=== PATIENT | female | born 2005 | race Caucasian/White ===

== ENCOUNTER 2024-11-12 06:14 | Outpatient (REF) | payer BC, SELFPAY ==
--- NOTE | ~2024-11-12 | US_ITS ---
CLINICAL HISTORY: NO PERIODS X 1 YEAR US pelvis transabdominal and transvaginal with Doppler Comparison: None provided Findings: Transabdominal scanning performed for overall anatomy. Transvaginal scanning performed for additional detail. Anteverted uterus is 4.5 cm length. Normal myometrium. No endometrial lesion, 5 mm thickness. Right ovary 4.2 x 2.3 x 3.4 cm. Left ovary 3.5 x 1.9 x 2 cm. Normal color Doppler with arterial/venous spectral tracing of both ovaries. There are numerous small follicles within the bilateral ovaries. Small amount of simple appearing free fluid within the cul-de-sac. IMPRESSION: 1. Prominent bilateral ovaries containing numerous follicles with an appearance suggesting possible polycystic ovaries. 2. Small amount of simple appearing free fluid within the cul-de-sac. This document has been electronically signed by: Suis Valadez MD on 11/13/2024 12:29:20
--- OUTSIDE RECORDS SUMMARY | 2024-11-12 06:16 | XMS_ITS | Clinical Summary ---
Author Organization [employer] Address [address] [place] [address] Care Team Providers Care Rack Carrier Name Role Phone Angelica Vargas YVONNE Primary Care Provider [phone] Dexter Borrego [phone] Allergies No known active allergies Medications escitalopram (Lexapro) 10 MG tablet TAKE 1.5 TABS (15MG) BY MOUTH DAILY - DOSE INCREASE 4 Active escitalopram (Lexapro) 5 MG tablet PLEASE SEE ATTACHED FOR DETAILED DIRECTIONS 3 Active prazosin (Minipress) 1 MG capsule TAKE 1 CAPSULE BY MOUTH EVERY DAY AT NIGHT 4 Active hydrOXYzine HCl (Atarax) 25 MG tablet TAKE 1/2 TO 1 TABLET UP TO 2X A DAY NEEDED FOR SEVERE ANXIETY 3 Active norgestimate-et hinyl estradiol (Tri-Estarylla) 0.18/0.215/0.25 MG-35 MCG tabletIndicatio ns:Irregular menses Take 1 tablet by mouth in the morning. 84 tablet 3 4 Active Additional Information Patient not taking.Reported on 10/22/2024 Active Problems Problem Noted Date Diagnosed Date Family history of PCOS 10/22/2024 Assessment & Plan (10/22/2024 4:16 PM EDT): PCOS suspected based on constellation of symptoms including irregular menses, hirsutism, mood swings, and difficulty with weight management. Differential diagnosis to be further evaluated by gynecology. - [facility]erral [facility] to [facility] ([facility]) at [facility] for gynecologic evaluation and further workup (as she is currently a student there). Advised to present to [facility] to schedule appointment. - Recommendation to discuss control options and hormonal management with gynecology at [facility]. Complex posttraumatic stress disorder 05/04/2023 Sleep disorder 05/04/2023 Irregular menses 05/04/2023 Depression 05/04/2023 Encounters Date Type Department Care Team Description 10/22/2024 2:00 PM EDT Office Visit [address] [phone] Angelica Vargas FNP Well adult exam (Primary Dx); Screening for depression; Encounter for screening examination for sexually transmitted disease; Irregular menses; Family history of PCOS; At risk for dental caries; Prediabetes 10/22/2024 Orders Only [address] [phone] Angelica Vargas FNP from Last 3 Months Immunizations Immunization Administration Dates Next Due DTaP 05/21/2009, 6,2004,08/24,2004 HepB-CpG 01/26/2024 HiB, unspecified 05/02/2005, 5,2004,07/01 IPV 2004, 5,2004,06/04,2004 Influenza injectable quadriv alent preservative free 11/28/2022 Influenza, IIV3, injectable 01/05/2009, 6 Influenza, seasonal, injecta ble, preservative free 01/05/2009,01/06/2006 MMR 05/21/2009,05/02/2005 Meningococcal B, Omv 08/18/2023 Pneumococcal Conjugate PCV 13 05/02/2005 ,2004,2004,07/01 Tdap 01/26/2024 Varicella 05/21/2009,05/02/2005 Family History Medical History Relation Name Comments No Known Problems Father Polycystic ovary syndrome Mother Diabetes type II Paternal Great-Grandfather Relation Name Status Comments Father Mother Paternal Great-Grandfather Social History Tobacco Use Types Packs/Day Years Used Date Smoking Tobacco: Never Passive Smoke Exposure: Never Smokeless Tobacco: Never Tobacco Cessation:Counseling Given: Not Answered Alcohol Use Standard Drinks/Week Comments Not Currently 0 (1 standard drink = 0.6 oz pur e alcohol) Alcohol Answer Date Recorded How often do you have a drink containing alcohol ? 1 05/04/2023 How many drinks containing a lcohol do you have on a typical day when you are drinking? 0 05/04/2023 How often do you have six or more drinks on one occasion? 0 05/04/2023 Depression Answer Date Recorded Patient Health Questionnaire-9 Score 13 08/08/2023 Patient Health Questionnaire-9 Score 13 08/08/2023 Last PHQ-9: Questionnaire Data Not on file 0 08/08/2023 Housing Stability Answer Date Recorded What is your housing situation today? I have janell farrell 10/22/[address] you li ve. Do you have problems with any of the following? None of the above 10/22/2024 Food Insecurity Answer Date Recorded Within the past 12 months, y ou worried that your food would run out before you got money to buy more: Never True 10/22/2024 Within the past 12 months,th e food you bought just didn't last and you didn't have enough money to get more: Never True Transportation Answer Date Recorded In the past 12 months, has l ack of transportation kept you from medical appts, meetings, work or from getting things needed for daily living? No 10/22/2024 Intimate Partner Violence Answer Date R ecorded Within the last year, have y ou been afraid of your partner or ex-partner? 2 05/04/2023 Within the last year, have y ou been humiliated or emotionally abused in other ways by your partner or ex-partner? 2 Within the last year, have y ou been kicked, hit, slapped, or otherwise physically hurt by your partner or ex-partner? 2 05/04/2023 Within the last year, have y ou been raped or forced to have any kind of sexual activity by your partner or ex-partner? 2 05/04/2023 Utilities Answer Date Recorded In the past 12 months, has t he electric, gas, oil or water company threatened to shut off services in your home? No 10/22/2024 Depression Answer Date Recorded Patient Health Questionnaire-2 Score 0 10/22/2024 Internet Access Answer Date Recorded Internet Access Q1 Yes 10/22/2024 Internet Access Q2 Not on file 10/22/2024 Comments Unknown Intention Date Recorded No desire to become (finding) 0 10/22/2024 Sex and Gender Information Value Date Recorded Sex Assigned at Female 04/25/2023 1:54 PM EST Legal Sex Female 1:51 PM EST Gender Identity Female 04/25/2023 1:54 PM EST Sexual Orientation Lesbian 04/25/2023 1: 54 PM EST Last Filed Vital Signs Vital Sign Reading Time Taken Comments Blood Pressure 108/74 10/22/2024 2:10 PM EDT Pulse 93 10/22/2024 2:10 PM EDT Temperature 36.3 C (97.4 F) 08/08/2023 1:52 PM EDT Respiratory Rate - - Oxygen Saturation 98% 10/22/2024 2:10 PM EDT Inhaled Oxygen Concentration - - Weight 108 kg (237 lb 9.6 oz) 10/22/2024 2:10 PM EDT Height 164.5 cm (5' 4.75 ) 10/22/2024 2:10 PM ED T Body Mass Index 39.84 10/22/2024 2:10 PM EDT Plan of Treatment Health Maintenance Due Date Last Done Comments HIV Screening 2004 Disability Screening 2004 IPV Vaccines (4 of 4 - 4-dose series) 2008 2004, 2004, 2004, Additional history exists HPV Vaccines (1 - 3-dose series) 05/01/2019 Hepatitis C Screening 2022 Meningococcal B Vaccine (2 of 2 - Bexsero SCDM 2-dose series) 02/17/2024 08/18/2023 Hepatitis B Vaccines (2 of 2 - CpG 2-dose series) 02/23/2024 01/26/2024 Diabetes: Hemoglobin A1C 08/20/2024 08/21/2023 COVID-19 Vaccine (2 - season) 2024 11/28/2022 Influenza Vaccine (#1) 2024 , 01/05/2009, 01/05/2009, Additional history exists Depression Monitoring 04/24/2025 10/22/2024, 024 Alcohol/Substance Use Screening 10/22/2025 10/22/2024 Chlamydia and Gonorrhea Screening 10/22/2025 10/22/2024 Family Planning (PISQ) 10/22/2025 10/22/2024 SDOH Screening 10/22/2025 10/22/2024 Tobacco Screening 10/22/2025 10/22/2024 DTaP/Tdap/Td Vaccines (7 - Td or Tdap) 01/25/2034 01/26/2024, 05/21/2009, 11/11/2005, Additional history exists Zoster Vaccines (1 of 2) 2054 RSV Patients and Patients Aged 60 years or older (1 - 1-dose 75+ series) 05/01/2079 HIB Vaccines Completed 05/02/2005, 10/28, 2004, Additional history exists Pneumococcal Vaccine: Pediatrics (0 to 5 Years) and At-Risk Patients (6 to 49) Years Completed 05/02/2005, 2004, 2004, Additional history exists Hepatitis A Vaccines Aged Out No long er eligible based on patient's age to complete this topic Meningococcal Vaccine Aged Out No kristina shaun eligible based on patient's age to complete this topic RSV under 20 months Aged Out No longe r eligible based on patient's age to complete this topic Rotavirus Vaccines Aged Out No longer eligible based on patient's age to complete this topic Procedures Procedure Name Priority Date/Time Associated Diagnosis Comments CHLAMYDIA/N. GONORRHOEAE RNA, TMA, UROGENITAL Routine 10/22/2024 2:38 PM EDT HEMOGLOBIN A1C Routine 08/21/2023 8:11 AM EDT Screening for diabetes mellitus from Last 3 Months or Most Recently Relevant to Health Maintenance Results * Chlamydia/N. Gonorrhoeae RNA, TMA, Urogenitial (10/22/2024 2:38 PM EDT) Chlamydia trachomatis RNA, TMA, Urogenital NOT DETECTED NOT DETECTED [facility] Neisseria gonorrhoeae RNA, TMA, Urogenital NOT DETECTED NOT DETECTED [facility] (Always Message) [facility] Comment: The analytical performance characteristics of this assay, when used to test SurePath(TM) specimens have been determined by [facility]. The modifications have not been cleared or approved by the FDA. This assay has been validated pursuant to the CLIA regulations and is used for clinical purposes. For additional information, please refer to https://education.CHROMAom/faq/AQU345 (This link is being provided for information/ educational purposes only.) 10/22/2024 2:38 PM EDT 10/22/2024 2:39 PM EDT Angelica Vargas [facility] MICROBIOLOGY - GENERAL ORDER TREVER Final Result [facility] [address], [place] [address] [facility] [address] [place] [address] * (ABNORMAL) Hemoglobin A1c (08/21/2023 8:11 AM EDT) Hemoglobin A1c 5.8(H) <5.7 % of total Hgb [facility] Comment: For someone without known diabetes, a hemoglobin A1c value between 5.7% and 6.4% is consistent with prediabetes and should be confirmed with a follow-up test. For someone with known diabetes, a value <7% indicates that their diabetes is well controlled. A1c targets should be individualized based on duration of diabetes, age, comorbid conditions, and other considerations. This assay result is consistent with an increased risk of diabetes. Currently, no consensus exists regarding use of hemoglobin A1c for diagnosis of diabetes for children. This test was performed on the Ce vielka c503 platform. Effective 05/01/23, a change in test platforms from the Hui Pill Maker to the Ce vielka c503 may have shifted HbA1c results compared to historical results. Based on laboratory validation testing conducted at [facility], the Ce platform relative to the Hui platform had an average increase in HbA1c value of < or = 0.3%. This difference is within accepted variability established by the National Glycohemoglobin Standardization Program. Note that not all individuals will have had a shift in their results and direct comparisons between historical and current results for testing conducted on different platforms is not recommended. Blood Venous blood specimen / Unknown 08/21/2023 8:11 AM EDT 08/21/2023 8:12 AM EDT Narrative [facility] - 08/22/2023 5:08 AM EDT FASTING:YES FASTING: YES Angelica Vargas [facility] BLOOD ORDERABLES Final Resul t [facility] [address] [place] [address] [facility] [address] [place] [address] from Last 3 Months or Most Recently Relevant to Health Maintenance Insurance PPO [facility] PPO Care Teams Rack Carrier Relationship Specialty Start Date End Date Angelica Vargas FNP [address] [place] [address] PCP - General Family Medicine 05/04/23 Dexter Borrego [address] [place] [address] Community Health Worker 05/05/23
== END 2024-11-12 06:15 | disposition home or self-care (01) ==
LOC: HO.UMASIMG 06:14
PROVIDERS: Visit Provider Nurse Practitioner Women's Health
DX: N91.2 Amenorrhea, unspecified (principal)
CPT/HCPCS: 76830; 76856

== ENCOUNTER → 2024-11-12 15:33 | Outpatient (BNV) | payer BC, SELFPAY | PROVIDERS: Visit Provider Radiology Diagnostic Radiology | DX: E28.2 Polycystic ovarian syndrome (principal) | CPT/HCPCS: 76830; 76856 ==